=== PATIENT | male | born 1960 | race Caucasian/White ===

== ENCOUNTER 2016-11-07 14:24 | Emergency (ER) | payer BC ==
[2016-11-07 14:41] VITALS: RESP 16
[2016-11-07] MEDS ORDERED: DIPH,PERTUS(ACELL)TETVAC-LF 0.5 ML VIAL IM ONE (14:55)
--- NOTE | 2016-11-07 15:11 | ED ---
General Adult HPI - General Chief complaint: Wound/Laceration Stated complaint: Laceration to Right Arm Time Seen by Provider: 11/07/16 14:37 Source: patient, RN notes reviewed Mode of arrival: ambulatory - History of Present Illness Initial comments: This is a 56-year-old male who presents with a laceration to the dorsal aspect of the left forearm. Patient states he was using a chopping saw and caught the top of his left arm. Patient denies any numbness/weakness or tingling in the left hand and is able to move all fingers. Patient states pain is worse with flexion of the left wrist. Patient is not sure if he is up-to-date on his tetanus shot. Patient denies any recent fever, chills, shortness breath, chest pain, abdominal pain, nausea/vomiting/diarrhea, back pain, hematuria, headache, or visual changes, or any other complaints. - Related Data Home Medications Medication Instructions Recorded Confirmed Diazepam [Valium] 5 mg PO BID PRN 09/17/14 10/20/14 Lisinopril [Lisinopril] 20 mg PO QAM 10/15/14 10/20/14 Previous Rx's Medication Instructions Recorded Cephalexin [Keflex] 500 mg PO Q12HR 5 Days 11/07/16 Allergies Allergy/AdvReac Type Severity Reaction Status Date / Time acetaminophen [From Tylenol] Allergy Swelling Verified 11/07/16 14:38 aspirin Allergy Swelling Verified 11/07/16 14:38 egg Allergy Rash/Hives Verified 11/07/16 14:38 ibuprofen [From Motrin] Allergy Rash/Hives Verified 11/07/16 14:38 Milk Containing Products Allergy Rash/Hives Verified 11/07/16 14:38 Penicillins Allergy Rash/Hives Verified 11/07/16 14:38 Review of Systems ROS Statement: Those systems with pertinent positive or pertinent negative responses have been documented in the HPI. ROS Other: All systems not noted in ROS Statement are negative. Past Medical History Past Medical History: Chest Pain / Angina, Hypertension Additional Past Medical History / Comment(s): HX RENAL CALCULUS History of Any Multi-Drug Resistant Organisms: None Reported Past Surgical History: Orthopedic Surgery, Tonsillectomy Additional Past Surgical History / Comment(s): ARTHROSCOPY LEFT KNEE, NASAL SX Past Anesthesia/Blood Transfusion Reactions: No Reported Reaction Past Psychological History: Anxiety, Depression, PTSD Smoking Status: Never smoker Past Alcohol Use History: Daily Past Drug Use History: None Reported General Exam - General Exam Comments Initial Comments: General: The patient is awake and alert, in no distress, and does not appear acutely ill. Neck: The neck is supple, there is no tenderness or JVD. Cardiovascular: There is a regular rate and rhythm. No murmur, rub or gallop is appreciated. Respiratory: Lungs are clear to auscultation, respirations are non-labored, breath sounds are equal. No wheezes, stridor, rales, or rhonchi. Musculoskeletal: There is tenderness palpation over the ulnar aspect of the distal left forearm. Full range of motion, strength 5/5 and Sensation intact. Radial pulses 2+ bilaterally. Capillary refill is normal at less than 2 seconds. Neurological: A&O x 3. CN II-XII intact, There are no obvious motor or sensory deficits. Coordination appears grossly intact. Speech is normal. Skin: There is an approximately 4.5 cm laceration to the dorsal aspect of the left distal forearm. No active bleeding. Skin is warm and dry and no rashes or lesions are noted. Psychiatric: Normal mood and affect. Course Vital Signs 11/07/16 14:38 Temperature 98.1 F Pulse Rate 90 Respiratory 16 Rate Blood Pressure 137/81 O2 Sat by Pulse 96 Oximetry Procedures - Procedures Initial comment: The skin was anesthetized with 1% lidocaine. The laceration was then cleansed and irrigated with normal saline. The wound was inspected, and there was no evidence of injury to deep structures. No foreign body was noted in the wound. A total of 12 skin sutures were placed utilizing 5-0 ethilon. Laceration is approx 4.5 cm. Medical Decision Making - Medical Decision Making This is a 56-year-old male presents to laceration to the left arm. On physical exam There is an approximately 4.5 cm laceration to the dorsal aspect of the left distal forearm. No active bleeding. There is tenderness to palpation over the ulnar aspect of the left distal forearm. Full range of motion, strength 5/5 and sensation intact. Radial pulses 2+ bilaterally. Capillary refill is normal less than 2 seconds. Patient was given a tetanus shot in the [facility] today. The left forearm was done and reviewed showing: #1 soft tissue defect. #2 is no osseous lesion or radiopaque foreign body. Report by Dr. Mar. The skin was anesthetized with 1% lidocaine. The laceration was then cleansed and irrigated with normal saline. The wound was inspected, and there was no evidence of injury to deep structures. No foreign body was noted in the wound. A total of 12 skin sutures were placed utilizing 5-0 ethilon. Laceration is approx 4.5 cm. I discussed that sutures need to be removed in 8-10 days. I discussed that rinsing and showering are okay but to avoid submerging the wound in water. Discussed [id number] Tylenol and Motrin as needed for any pain. I discussed use of topical Neosporin. I discussed return parameters and signs of infection. Please finish entire course of antibiotics. Discussed that patient should follow up with PCP in one to 2 days or return to the [facility] for any worsening symptoms or for any further concerns. Patient was receptive to this plan and patient will be discharged home. Disposition Clinical Impression: Laceration Disposition: HOME SELF-CARE Condition: Good Instructions: Care For Your Stitches (ED), Stitches Removal (ED) Additional Instructions: Rest, ice, elevate and please have sutures removed in 8-10 days. Please finish entire course of antibiotics. May use topical Neosporin to the area. Please use Tylenol as needed for pain. Please use medication as discussed. Please follow-up with family doctor in the next 2 days of symptoms have not improved. Please return to emergency room if the symptoms increase or worsen or for any other concerns. Prescriptions: Cephalexin [Keflex] 500 mg PO Q12HR 5 Days Time of Disposition: 15:57
--- NOTE | 2016-11-07 15:21 | XR ---
EXAMINATION TYPE: XR forearm LT DATE OF EXAM ORDERED: 11/07/2016 3:12 PM HISTORY: Laceration. COMPARISON: None. FINDINGS: No fracture, dislocation or radiopaque foreign body is seen. There is a soft tissue defect over the dorsum of the distal forearm. IMPRESSION: 1. SOFT TISSUE DEFECT. 2. NO OSSEOUS LESION OR RADIOPAQUE FOREIGN BODY.
[2016-11-07 16:08] VITALS: BP 123/79; PULSE 77; TEMP 97.9
== END 2016-11-07 16:08 | disposition home or self-care (01) ==
LOC: EC 14:24
DX: S51.812A Laceration without foreign body of left forearm, initial encounter (principal); I10 Essential (primary) hypertension; Z23 Encounter for immunization; W45.8XXA Other foreign body or object entering through skin, initial encounter; Z79.899 Other long term (current) drug therapy; Z88.8 Allergy status to other drugs, medicaments and biological substances; Z88.0 Allergy status to penicillin; Z88.6 Allergy status to analgesic agent; Z91.012 Allergy to eggs; Z91.011 Allergy to milk products
CPT/HCPCS: 12002; 90471; 90715; 99283

== ENCOUNTER → 2019-08-24 | Outpatient (CLI) | payer BC ==
--- NOTE | 2019-08-24 15:51 | CT ---
EXAMINATION TYPE: CT chest w con DATE OF EXAM: 08/24/2019 COMPARISON: Chest x-ray dated 06/22/2019 HISTORY: Persistent cough x [address] DLP: 567 mGycm. Automated Exposure Control for Dose Reduction was Utilized. TECHNIQUE: CT scan of the thorax is performed following with IV Contrast, patient injected with 100 mL of Isovue M300. FINDINGS: LUNGS: There is a 5 mm groundglass pulmonary nodule the medial right lower lobe on image 40 of series 4. Similar appearing 8 mm ground glass pulmonary nodule the superior segment of the left lower lobe on image 27. No focal consolidation. There is no pleural effusion or pneumothorax seen. The tracheobronchial tr ee is patent. MEDIASTINUM: There are no greater than 1 cm hilar or mediastinal lymph nodes. No pericardial effusi on is seen. Upper limits of normal size of the aortic root measuring 3.8 cm. OTHER: 5 mm hypoattenuated hepatic lesions in subcapsular location series 3 image 69 in the inferior right hepatic lobe. Overall there is diffuse hypoattenuation of the hepatic parenchyma most commonly related to mild degree hepatic steatosis. Mild multilevel degenerative changes of the thoracic spine. IMPRESSION: 1. Bilateral sub-5 mm groundglass pulmonary nodules (2 in number). Given the groundglass density shor t-term follow-up CT is recommended in 6 months to evaluate for progression or resolution as these cou ld be inflammatory/infectious or early neoplastic. 2. No CT findings to relate to the patient's chronic cough.
== END | disposition home or self-care (01) ==
LOC: RADCTMAIN 15:02
PROVIDERS: ATTEND Internal Medicine Critical Care Medicine
DX: R91.8 Other nonspecific abnormal finding of lung field (principal)
CPT/HCPCS: 71260; Q9967

== ENCOUNTER 2019-08-28 11:11 | Day surgery (SDC) | payer BC ==
[2019-08-27 09:21] VITALS: BMI 27.0
[~2019-08-28 11:11] MED LIST: ALBUTEROL NEB (CONC) 2.5 MG/0.5 ML INHALATION ONE; ATROPINE SULFATE 0.4 MG/ML 1 ML VIAL IM ONE; DEXAMETHASONE SOD PHOSPHATE 10 MG/ML 1 ML VIAL IV ONE; LACTATED RINGERS 1,000 ML IV SCH; LIDOCAINE 1% 20 ML VIAL (10MG/ML) FOR IV START INTRADERMA PRN; LIDOCAINE 2% (PF) 20 MG/ML 5 ML VIAL INHALATION ONE; LIDOCAINE VISCOUS 300 MG/15 ML CUP MUCOUS MEM ONE; ONDANSETRON 4 MG/2 ML VIAL IVP ONE; SODIUM CHLORIDE 0.9% 1,000 ML IV SCH
[2019-08-28 11:38] VITALS: TEMP 97.8
[2019-08-28] MEDS ORDERED: LIDOCAINE 1% INJ 10MG/ML (20 ML MDV) ONE (12:15)
[2019-08-28] MEDS ORDERED: MIDAZOLAM 2 MG/2 ML VIAL ONE (12:15)
[2019-08-28] MEDS ORDERED: KETAMINE 10 MG/ML 20 ML VIAL ONE (12:15)
[2019-08-28] MEDS ORDERED: PROPOFOL 10 MG/ML 20 ML VIAL IV ONE (12:15)
[2019-08-28] MEDS ORDERED: LIDOCAINE 2% INJ 20 MG/ML INTRATRACH ONE (12:29)
[2019-08-28 12:37] VITALS: RESP 16
[2019-08-28 13:07] VITALS: BP 120/65; PULSE 102
--- NOTE | 2019-08-28 14:05 | PCN ---
PROCEDURE NOTE PROCEDURE: Bronchoscopy, airway examination, therapeutic lavage, BAL. PREOPERATIVE DIAGNOSIS: Chronic cough. POSTOPERATIVE DIAGNOSIS: Chronic cough. OPERATORS: Dr. Ramirez and Omar Torres. The anesthesia nurse fabricator special items provided general anesthesia, unconscious sedation. The patient's procedure was done over at the [facility]. There was informed consent and universal timeout. I did speak to the patient before the procedure. Again, the reason for the procedure was chronic cough after preop and postop diagnosis. The procedure was a bronchoscopy, airway examination, therapeutic lavage and BAL. After the patient was adequately sedated and being fully monitored, the bronchoscope was inserted the right nostril. It passed through the right nasopharynx into the oropharynx. The hypopharynx was then identified. The hypopharyngeal structures including anterior commissure, true cords, false cords, arytenoids, piriform sinuses, right and left valleculae and epiglottis all appeared normal. The glottic opening was topicalized with lidocaine. After topicalization, the bronchoscope was pushed through the glottic opening into the trachea. Trachea appeared relatively normal. The tracheal arie was sharp. The right and left mainstem were topicalized. On the left side, the left upper lobe proper and its 2 segments, the lingula and its 2 segments and the left lower lobe and its 4 segments all appeared relatively normal save for diffuse airway erythema and hyperemia. There was acute bronchitis noted throughout. There were thick secretions noted. There was no dominant mass or tumor. There was no bleeding. On the right side, there were similar findings of diffuse airway erythema and hyperemia. There was some mucosal friability. The right upper lobe and its 3 segments, the right middle lobe and its 2 segments, the right lower lobe and its 5 segments, all have similar findings. There was no dominant mass or tumor. There was no bleeding. The secretions on the right side were also suctioned without difficulty with the aid of saline lavage. Airways were topicalized with lidocaine. Next, the bronchoscope was wedged into the right middle lobe. The BAL took place, 30+ mL was recovered. This will be sent to the laboratory for analysis. One final inspection took place before the bronchoscope was withdrawn. Any additional secretions were suctioned. The patient tolerated the procedure well. The bronchoscope was withdrawn. I did speak to the patient's sister after the procedure. He tolerated the procedure well. MMODL / IJN: [id number] /
== END 2019-08-28 13:11 | disposition home or self-care (01) ==
LOC: ORWHC2ENDO 11:11
PROVIDERS: ATTEND Internal Medicine Critical Care Medicine
DX: J20.9 Acute bronchitis, unspecified (principal); J98.09 Other diseases of bronchus, not elsewhere classified; R05 Cough; I10 Essential (primary) hypertension; Z80.1 Family history of malignant neoplasm of trachea, bronchus and lung; Z82.3 Family history of stroke; F32.9 Major depressive disorder, single episode, unspecified; F41.9 Anxiety disorder, unspecified; Z88.0 Allergy status to penicillin; Z79.899 Other long term (current) drug therapy; Z88.6 Allergy status to analgesic agent; Z91.012 Allergy to eggs; Z91.011 Allergy to milk products
CPT/HCPCS: 94640; 88108; 88305; 31624; J2001 ×3; J2250; J0461; J1100; J2405; J2704

== ENCOUNTER → 2020-06-23 | Outpatient (CLI) | payer BC ==
[2020-06-24 01:15] LABS: African American GFR (CKD) 68.3 (60.0-200.0); Albumin 4.5 g/dL (3.80-4.90); Albumin/Globulin Ratio 2.25 (1.60-3.17); Anion Gap 9.2 mmol/L (4.00-12.00); BUN/Creat Ratio 16.92 Ratio (12.00-20.00); Calcium 9.7 mg/dL (8.7-10.3); Carbon Dioxide 23.8 mmol/L (21.6-31.8); Non-African American GFR(CKD) 58.9 (60.0-200.0); Potassium 4.4 mmol/L (3.5-5.5); Total Bilirubin 0.6 mg/dL (0.2-1.2); Total Protein 6.5 g/dL (6.2-8.2)
== END | disposition home or self-care (01) ==
LOC: LABWHC1 15:16
PROVIDERS: ATTEND Internal Medicine Interventional Cardiology
DX: I49.3 Ventricular premature depolarization (principal)
CPT/HCPCS: 36415; 80053; 83735

== ENCOUNTER → 2020-06-28 | Outpatient (CLI) | payer BC ==
--- NOTE | 2020-06-28 17:09 | CONS ---
CONSULTATION SLEEP CONSULTATION FOR SLEEP APNEA: A 59-year-old male patient who has been experiencing daytime palpitations, quite a bit. The patient has undergone a Holter monitor prior to the cardiology and the patient was found to have frequent PVCs. Echocardiogram and stress tests are also to follow. Referred to me for sleep apnea evaluation. He does snore. Sleep apnea runs in his family. 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 During no working days, which is the regular weekdays, the patient goes to bed around 1 a.m. in the morning and gets up at 9 a.m. in the morning. No witnessed apneas. He is a bit fatigued and tired and waking up tired and sleepy during the day. There is no choking or gasping for air. No grinding of the teeth. No sleepwalking. No restlessness in the lower extremities. No recent weight gain or weight loss. No head trauma. No anxiety. No depression. No significant comorbidities. PAST MEDICAL HISTORY: Hypertension. PAST SURGICAL HISTORY: Includes nose surgery for deviated septum and right shoulder surgery x2. DRUG ALLERGIES: PENICILLIN. OUTPATIENT MEDICATIONS: Losartan for hypertension. SOCIAL HISTORY: The patient is a nonsmoker. No history of alcoholism. No history of drug abuse. 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 FAMILY HISTORY: Son and father have obstructive sleep apnea. REVIEW OF SYSTEMS: A 12-point review of system was done, positive findings are mentioned in history of present illness. Otherwise negative. BP is 148/83, pulse 74, respirations 16, temperature 98.1, saturation 97% on room air. Height is 5, 9, weight is 197 and BMI is 28.6. Neck size 16.5 inches. GENERAL APPEARANCE: Calm, comfortable. HEAD: Atraumatic, normocephalic. NECK: Supple. No JVD. No goiter or neck masses, Mallampati class 4 with significant overbite. LUNGS: Clear to auscultation. HEART: Heart sounds are regular rate and rhythm, normal S1, S2. No S3, S4. No murmurs. ABDOMEN: Soft, nontender. No organomegaly. EXTREMITIES: No edema, no cyanosis or clubbing. IMPRESSION: 1. Chronic snoring. 2. Hypersomnia. 3. Chronic fatigue with limited sleepiness with an Mcville score of 6. 4. Hypertension. 5. Palpitations with frequent PVCs. 6. Positive family history for sleep apnea. 7. Overbite with Mallampati class 4. PLAN: 1. Encourage weight loss. 2. Sleep on the side. 3. Avoid caffeinated beverages throughout the day, avoid coffee and other alcoholic beverages. 4. Thyroid function test. 5. Echocardiogram and cardiac workup was in progress. 6. Proceed with a home sleep study. 7. Further recommendations are to follow based on the results of the home sleep study. MMODL / IJN: [id number] /
== END | disposition home or self-care (01) ==
LOC: SLEEP 14:16
PROVIDERS: ATTEND Internal Medicine Critical Care Medicine
DX: G47.10 Hypersomnia, unspecified (principal); I10 Essential (primary) hypertension; I49.3 Ventricular premature depolarization; R53.82 Chronic fatigue, unspecified; M26.29 Other anomalies of dental arch relationship; Z83.6 Family history of other diseases of the respiratory system
CPT/HCPCS: 99211

== ENCOUNTER → 2020-12-29 | Outpatient (CLI) | payer BC ==
[2020-12-29 14:23] LABS: HCT 44.5 % (39.0-53.0); HGB 14.9 gm/dL (13.0-17.5); MCH 31.9 pg (25.0-35.0); MCHC 33.5 g/dL (31.0-37.0); MCV 95.4 fL (80.0-100.0); Mean Platelet Volume 8.5; Platelet Count 216 k/uL (150-450); RBC 4.67 m/uL (4.30-5.90); RDW 13.1 % (11.5-15.5); WBC 6.6 k/uL (3.8-10.6)
[2020-12-29 14:36] LABS: African American GFR (CKD) >90 (>60 ml/min/1.73 sqM); Anion Gap 8 mmol/L; Blood Urea Nitrogen 21 mg/dL (9-20); Carbon Dioxide 25 mmol/L (22-30); Chloride 107 mmol/L (98-107); Non-African American GFR(CKD) 80 (>60 ml/min/1.73 sqM); Potassium 4.4 mmol/L (3.5-5.1); Sodium 140 mmol/L (137-145)
== END | disposition home or self-care (01) ==
LOC: LABWHC1 13:18
PROVIDERS: ATTEND Internal Medicine Clinical Cardiac Electrophysiology
DX: Z01.818 Encounter for other preprocedural examination (principal); I49.3 Ventricular premature depolarization
CPT/HCPCS: 36415; 80051; 82565; 84520; 85027

== ENCOUNTER 2021-01-02 11:20 | Day surgery (SDC) | payer BC ==
[2020-12-29 12:01] VITALS: BMI 29.0
[~2021-01-02 11:20] MED LIST changes: -ALBUTEROL NEB (CONC) 2.5 MG/0.5 ML INHALATION ONE; -ATROPINE SULFATE 0.4 MG/ML 1 ML VIAL IM ONE; -DEXAMETHASONE SOD PHOSPHATE 10 MG/ML 1 ML VIAL IV ONE; -LACTATED RINGERS 1,000 ML IV SCH; -LIDOCAINE 1% 20 ML VIAL (10MG/ML) FOR IV START INTRADERMA PRN; -LIDOCAINE 2% (PF) 20 MG/ML 5 ML VIAL INHALATION ONE; -LIDOCAINE VISCOUS 300 MG/15 ML CUP MUCOUS MEM ONE; -ONDANSETRON 4 MG/2 ML VIAL IVP ONE
[2021-01-02] MEDS ORDERED: SODIUM CHLORIDE 0.9% 1,000 ML IV ONE (11:48)
[2021-01-02 12:05] LABS: Basophils % (A) 1 %; Eosinophils # (A) 0.2 k/uL (0-0.7); Eosinophils % (A) 3 %; HGB 15.3 gm/dL (13.0-17.5); Lymphocytes # (A) 1.4 k/uL (1.0-4.8); Lymphocytes % (A) 26 %; MCH 32.6 pg (25.0-35.0); MCHC 34.7 g/dL (31.0-37.0); MCV 93.8 fL (80.0-100.0); Mean Platelet Volume 7.8; Monocytes # (A) 0.4 k/uL (0-1.0); Monocytes % (A) 7 %; Neutrophils # (A) 3.3 k/uL (1.3-7.7); Neutrophils % (A) 61 %; Platelet Count 202 k/uL (150-450); RBC 4.69 m/uL (4.30-5.90); RDW 12.5 % (11.5-15.5); WBC 5.4 k/uL (3.8-10.6)
[2021-01-02 12:13] LABS: Calcium 9.8 mg/dL (8.4-10.2)
[2021-01-02] MEDS ORDERED: fentaNYL (PF) 50 MCG/ML 2 ML AMP ONE (15:23)
[2021-01-02] MEDS ORDERED: MIDAZOLAM 2 MG/2 ML VIAL ONE (15:23)
[2021-01-02] MEDS ORDERED: PROPOFOL 10 MG/ML 20 ML VIAL IV ONE (15:23)
--- NOTE | 2021-01-02 15:33 | P.HPCAR ---
History of Present Illness This is Dr. Perez dictating an H/P on this patient The patient was interviewed and examined IMPRESSION / ASSESSMENT: Outflow tract PVCs with a left bundle branch block morphology and an initial notching in the downslope of the QRS, symptomatic Increase in frequency with exercise initially followed by suppression at peak exercise Mild mitral valve prolapse with mild regurgitation Normal LV and RV size and function Normal coronary arteries in 2015 PLAN: Mapping and ablation of PVCs EP study for induction of any nonsustained or sustained VT HPI 58-year-old male patient who has recurrent palpitations for the last 5 years with frequent PVCs. They can occur at rest and they occur first thing in the morning when he wakes up. Exercise makes them worse. When he has very frequent PVCs he gets a little dizzy but he has never lost consciousness. Patient denies any fever chills cough expectoration Denies any shortness of breath on exertion denies any skin infections Denies any chest discomfort ROS: No fever chills or rigors, no cough, phlegm or expectoration, no nausea, vomiting or diarrhea, no hematuria, dysuria, no musculoskeletal complaints, no strokes or seizures, no skin lesions. EXAMINATION: Afebrile 97.5F, pulse rate in the 80s, blood pressure 144/90 mmHg pulse ox 99% Breath sounds are clear no rhonchi no crackles Heart sounds are normal and regular this time In the [facility] he was experiencing PVCs on telemetry Abdomen is soft nontender Extremities are warm no edema No JVD REVIEW OF LABS, ECG & MEDICAL DATA White count 5.4, hemoglobin 15.3, platelet count 202,000 BMP normal sodium 138, potassium 4.0 BUN 19 and creatinine 1.09 Physical Exam Vitals: Vital Signs Temp Pulse Resp BP Pulse Ox 01/02/21 11:47 97.5 F L 82 16 144/90 99 Intake and Output 01/02/21 01/02/21 01/02/21 06:59 14:59 22:59 Intake Total 600 Balance 600 Intake: IV 600 Other: Weight 93.4 kg Past Medical History Past Medical History: Chest Pain / Angina, COPD, Eye Disorder, Hypertension, Osteoarthritis (OA), Sleep Apnea/CPAP/BIPAP Additional Past Medical History / Comment(s): HX RENAL CALCULUS, See Dr Perez H&P, chronic bronchitis, gout, tinnitus, vitreous detachment History of Any Multi-Drug Resistant Organisms: None Reported Past Surgical History: Heart Catheterization, Orthopedic Surgery, Tonsillectomy Additional Past Surgical History / Comment(s): ARTHROSCOPY LEFT KNEE, NASAL SX, rt shoulder rotator cuff, rt shoulder arthroscopy Past Anesthesia/Blood Transfusion Reactions: No Reported Reaction Smoking Status: Never smoker - Past Family History Mother Family Medical History: Cancer Physical Examination Vital Signs Temp Pulse Resp BP Pulse Ox 01/02/21 11:47 97.5 F L 82 16 144/90 99 Intake and Output 01/02/21 01/02/21 01/02/21 06:59 14:59 22:59 Intake Total 600 Balance 600 Intake: IV 600 Other: Weight 93.4 kg Results 01/02/21 12:00 01/02/21 12:00 CBC 01/02/21 Range/Units 12:00 WBC 5.4 (3.8-10.6) k/uL RBC 4.69 (4.30-5.90) m/uL Hgb 15.3 (13.0-17.5) gm/dL Hct 44.0 (39.0-53.0) % Plt Count 202 (150-450) k/uL Comprehensive Metabolic Panel 01/02/21 Range/Units 12:00 Sodium 138 (137-145) mmol/L Potassium 4.0 (3.5-5.1) mmol/L Chloride 105 (98-107) mmol/L Carbon Dioxide 27 (22-30) mmol/L BUN 19 (9-20) mg/dL Creatinine 1.09 (0.66-1.25) mg/dL Glucose 105 H (74-99) mg/dL Calcium 9.8 (8.4-10.2) mg/dL Current Medications Generic Name Dose Route Start Last Admin Trade Name Freq PRN Reason Stop Dose Admin Sodium Chloride 1,000 mls @ 20 mls/hr 01/02/21 06:05 Saline 0.9% IV 02/01/21 06:06 .Q24H DAVID Intake and Output 01/02/21 01/02/21 01/02/21 06:59 14:59 22:59 Intake Total 600 Balance 600 Intake: IV 600 Other: Weight 93.4 kg Patient Weight 01/03/21 06:59 Weight 93.4 kg 01/02/21 12:00 01/02/21 12:00
[2021-01-02] MEDS ORDERED: LIDOCAINE 1% INJ 10MG/ML (20 ML MDV) ONE (15:41)
[2021-01-02] MEDS ORDERED: LIDOCAINE 1% INJ 10MG/ML (20 ML MDV) SQ ONE (15:57)
[2021-01-02] MEDS ORDERED: ACETAMINOPHEN TAB 325 MG TAB PO PRN (17:46)
[2021-01-02] MEDS ORDERED: HYDROcodone/APAP 5-325MG 1 EACH TAB PO PRN (17:46)
[2021-01-02] MEDS ORDERED: LACTATED RINGERS 1,000 ML IV ONE (17:46)
[2021-01-02] MEDS ORDERED: ACETAMINOPHEN IV (For NPO) 1,000 MG in EMPTY BAG 1 BAG IVPB ONE (17:46)
--- NOTE | 2021-01-02 18:04 | P.EPPROC ---
- EP Procedure Note Electrophysiology Procedure Note: Diagnosis Palpitations and dizziness Frequent PVCs, left bundle branch block morphology, upright QRS is in the inferior leads, notching on the downslope of the QRS of the PVC in lead V1 Result Noninducible clinical PVC despite a full EP study on and off Isuprel with minimal sedation Very easily inducible atrial fibrillation during catheter placement in the right atrial appendage requiring electrical cardioversion Non-clinical PVC, epicardial focus in the left ventricular epicardium, mapped by conventional techniques in the distal coronary sinus/. Cardiac vein Earliest site -31 ms in the GCV. Not tolerated for ablation at this time since it was nonclinical and will require coronary angiography to confirm that the coronary arteries a safe distance from the earliest site Details Patient was brought to the EP lab in a fasting state. Written informed consent was obtained prior to procedure. IV antibiotics were administered. He stated that 10 minutes before coming into the lab his PVCs stopped With minimal sedation, venous sheaths were placed in the right femoral vein Via these diagnostic catheter placed in the high right atrium, His bundle area, right ventricular outflow, right ventricular apex and coronary sinus and great cardiac vein Sinus cycle length 761 ms, ND interval 149 ms, QRS 155 ms, right bundle branch block morphology, QT interval 401 ms AH interval 76 ms, HV interval 50 ms With catheter placement in the right atrial appendage, atrial fibrillation was very easily induced This remained sustained until electrical cardioversion was performed later on In the interim, while the patient was in atrial fibrillation burst stimulation was performed from the right ventricular outflow tract and the right ventricular apex Extra stimulation opted cripple extrastimuli from both sites in the right ventricle No nonsustained ventricular tachycardia induced No sustained ventricular tachycardia induced Patient did not have his clinical PVCs, not a single clinical PVC noted He had nonclinical PVC that is clearly epicardial in nature with a delta wave- like configuration with an MDI of almost 70% Later this was mapped by conventional techniques into the great cardiac vein. Earliest activation site -31 ms from the onset of the QRS Ablation was not performed since coronary angiography was not performed simultaneously to ensure that this was a safe distance away from the coronary arteries In addition this was a nonclinical PVC Electrical cardioversion was performed successfully with a 200 J biphasic shock to sinus rhythm Thereafter Isuprel was started at 2 mics Later increased to 5 mics There were no spontaneous PVCs noted during Isuprel. Burst stimulation was performed from the right ventricular apex. Extra stimulation was performed on Isuprel No clinical arrhythmias noted Isuprel was stopped and EP study was continued. He did not have his clinical PVCs spontaneously nor were they inducible during EP study Sinus recovery times at 600 504 100 ms were 1158, 1291 and 1158 ms. Corresponding converted to sinus recovery times were minimally prolonged AV node Wenckebach block 280 ms RF at the end of the procedure on sheaths were removed and hemostasis was assured Results discussed with the patient did he was awake through the procedure with minimal sedation He is had an event monitor and he had his symptoms of dizziness and palpitations and PVCs with documented So far we have never documented atrial fibrillation clinically
--- NOTE | 2021-01-02 18:12 | P.PRLE ---
RE: David Weiss Dear Dr. Melvin Patient was admitted with a Diagnosis of Palpitations and dizziness Frequent PVCs, left bundle branch block morphology, upright QRS is in the inferior leads, notching on the downslope of the QRS of the PVC in lead V1 A diagnostic EP study was performed Result Noninducible clinical PVC despite a full EP study on and off Isuprel with minimal sedation. Therefore no mapping could be performed Very easily inducible atrial fibrillation during catheter placement in the right atrial appendage requiring electrical cardioversion Results discussed with the patient did he was awake through the procedure with minimal sedation He is had an event monitor and he had his symptoms of dizziness and palpitations and PVCs with documented So far we have never documented atrial fibrillation clinically I would recommend treating him with a very low dose of flecainide to see if this reduces his PVC burden He will continue to follow with you and Dr. Leach as before
[2021-01-02] MEDS ORDERED: MORPHINE SULFATE 4 MG/ML SYRINGE IVP PRN (19:07)
[2021-01-02] MEDS: FLECAINIDE 50 MG TAB PO SCH (20:58)
[2021-01-02] MEDS ORDERED: ZOLPIDEM 5 MG TAB PO PRN (21:00)
[2021-01-03] MEDS: FLECAINIDE 50 MG TAB PO SCH (07:13)
[2021-01-03 07:22] LABS: Glucose,Whole Blood 93 mg/dL (75-99)
[2021-01-03 07:43] VITALS: BP 153/75; PULSE 72; TEMP 98
[2021-01-03 07:59] VITALS: RESP 18
--- NOTE | 2021-01-03 08:25 | DS ---
DISCHARGE SUMMARY Mr. Weiss has frequent PVCs and he underwent an EP study. However, his clinical PVCs were noninducible. However, he was also noninducible for any nonsustained or sustained VT. This morning he is doing well. We started him on low dose flecainide 50 mg twice daily. His blood pressure is mildly elevated about 150/73 mmHg. He takes losartan 50 mg p.o. daily. Heart sounds S1, S2 are normal. Lungs are clear. No JVD. Minimal tenderness in the groin. Minimal swelling in the groin. IMPRESSION: 1. Frequent PVCs. 2. Noninducible for nonsustained ventricular tachycardia. 3. Noninducible for sustained ventricular tachycardia. 4. Easily inducible atrial fibrillation requiring electrical cardioversion, but we have never clinically seen atrial fibrillation. 5. Right bundle branch block pattern on 12-lead ECG. 6. Hypertension, on losartan. SUGGEST: 1. Maximize losartan for blood pressure management. 2. Low dose flecainide either 25 or 50 mg twice daily to suppress the PVCs. 3. He has 2 PVCs, one is of predominant variety, but it did not show up yesterday. The other was an epicardial PVC. 4. He will follow up with Dr. Leach's nurse practitioner in about a week's time. 5. A followup Holter monitor will be ordered after about 2 weeks. MMODL / IJN: [id number] /
[2021-01-03] MEDS ORDERED: LOSARTAN 50 MG TAB PO SCH (09:00)
== END 2021-01-03 11:00 | disposition home or self-care (01) ==
LOC: CATHEP 11:20 → 6NMEDSUR 15:19 → CATHEP 01-03 11:00
PROVIDERS: ATTEND Internal Medicine Clinical Cardiac Electrophysiology
DX: I49.3 Ventricular premature depolarization (principal); I47.2 Ventricular tachycardia; I48.91 Unspecified atrial fibrillation; I45.2 Bifascicular block; I10 Essential (primary) hypertension; I34.1 Nonrheumatic mitral (valve) prolapse; I34.0 Nonrheumatic mitral (valve) insufficiency; J44.9 Chronic obstructive pulmonary disease, unspecified; M19.90 Unspecified osteoarthritis, unspecified site; G47.30 Sleep apnea, unspecified; M10.9 Gout, unspecified; H93.19 Tinnitus, unspecified ear; Z79.899 Other long term (current) drug therapy; Z88.6 Allergy status to analgesic agent; Z91.012 Allergy to eggs; Z91.011 Allergy to milk products; Z88.0 Allergy status to penicillin; Z86.69 Personal history of other diseases of the nervous system and sense organs; Z99.89 Dependence on other enabling machines and devices; Z87.442 Personal history of urinary calculi; Z87.09 Personal history of other diseases of the respiratory system; Z98.890 Other specified postprocedural states; Z90.89 Acquired absence of other organs; Z80.9 Family history of malignant neoplasm, unspecified
CPT/HCPCS: 92960; 93620; 93623; 80048; 85025; C1894; C1769 ×2; C1730 ×2; J2001

== ENCOUNTER 2021-09-03 10:28 | Emergency (ER) | payer BC ==
[2021-09-03 10:38] VITALS: TEMP 99.7
--- NOTE | 2021-09-03 11:36 | ED ---
General Adult HPI - General Chief complaint: Upper Respiratory Infection Stated complaint: SOB/cough/sore throa Time Seen by Provider: 09/03/21 11:02 Source: patient, RN notes reviewed Mode of arrival: ambulatory Limitations: no limitations - History of Present Illness Initial comments: 60-year-old male presents to the emergency room for a chief complaint of cough. Patient has had a cough for 2 days. Patient states he has had COVID-19 twice already and been vaccinated. Denies shortness of breath except when he gets in a coughing fit. Patient also has a sore throat. Patient has no other complaints at this time including shortness of breath, chest pain, abdominal pain, nausea or vomiting, headache, or visual changes. - Related Data Home Medications Medication Instructions Recorded Confirmed Losartan [Cozaar] 50 mg PO DAILY 08/27/19 09/03/21 Flecainide [Tambocor] 50 mg PO BID 09/03/21 09/03/21 Previous Rx's Medication Instructions Recorded Benzonatate [Tessalon Perles] 200 mg PO Q8H PRN #15 capsule 09/03/21 Promethaz-Cod 6.25-10 mg/5 ml 5 ml PO Q6HR PRN 3 Days #60 ml 09/03/21 [Phenergan with Codeine] predniSONE 50 mg PO DAILY #5 tablet 09/03/21 Allergies Allergy/AdvReac Type Severity Reaction Status Date / Time acetaminophen [From Tylenol] Allergy Rash/Hives Verified 09/03/21 12:04 egg Allergy Rash/Hives Verified 09/03/21 12:04 ibuprofen [From Motrin] Allergy Rash/Hives Verified 09/03/21 12:04 Milk Containing Products Allergy Rash/Hives Verified 09/03/21 12:04 naproxen Allergy Rash/Hives Verified 09/03/21 12:04 Penicillins Allergy Rash/Hives Verified 09/03/21 12:04 Review of Systems ROS Statement: Those systems with pertinent positive or pertinent negative responses have been documented in the HPI. ROS Other: All systems not noted in ROS Statement are negative. Past Medical History Past Medical History: Chest Pain / Angina, COPD, Eye Disorder, Hypertension, Osteoarthritis (OA), Sleep Apnea/CPAP/BIPAP Additional Past Medical History / Comment(s): HX RENAL CALCULUS, See Dr Perez H&P, chronic bronchitis, gout, tinnitus, vitreous detachment, irregular heart beat per patient History of Any Multi-Drug Resistant Organisms: None Reported Past Surgical History: Heart Catheterization, Orthopedic Surgery, Tonsillectomy Additional Past Surgical History / Comment(s): ARTHROSCOPY LEFT KNEE, NASAL SX, rt shoulder rotator cuff, rt shoulder arthroscopy Past Anesthesia/Blood Transfusion Reactions: No Reported Reaction Past Psychological History: Anxiety, Depression, PTSD Smoking Status: Never smoker Past Alcohol Use History: Daily Past Drug Use History: None Reported - Past Family History Mother Family Medical History: Cancer General Exam Limitations: no limitations General appearance: alert, in no apparent distress Head exam: Present: atraumatic Eye exam: Present: normal appearance, PERRL, EOMI. Absent: scleral icterus, conjunctival injection ENT exam: Present: normal exam, normal oropharynx (Erythematous, postnasal drip noted. Uvula midline, no tonsillar treated bilaterally), mucous membranes moist, TM's normal bilaterally, normal external ear exam Neck exam: Present: normal inspection, full ROM. Absent: tenderness Respiratory exam: Present: normal lung sounds bilaterally. Absent: respiratory distress, wheezes Cardiovascular Exam: Present: regular rate, normal rhythm, normal heart sounds GI/Abdominal exam: Present: soft, normal bowel sounds. Absent: distended, tenderness Neurological exam: Present: alert Course Vital Signs 09/03/21 09/03/21 10:34 11:56 Temperature 99.7 F H Pulse Rate 116 H Respiratory 18 22 Rate Blood Pressure 144/88 O2 Sat by Pulse 99 Oximetry Medical Decision Making - Medical Decision Making Vitals are stable. Low grade fever noted. Patient is ALLERGIC to Motrin and Tylenol but can take aspirin so this was ordered. COVID-19 and influenza negative. Chest x-ray shows no acute pulmonary infiltrate. Pt states usually needs steroids when he gets like this as he has a chronic bronchitis history. We will treat patient with steroids and cough medicine. We will send a strep as well. I will call him with results. He will return here for any worsening symptoms. - Lab Data Lab Results 09/03/21 09/03/21 Range/Units 11:42 11:42 Coronavirus (PCR) Not Detected (Not Detectd) Influenza Type A RNA Not Detected (Not Detectd) Influenza Type B (PCR) Not Detected (Not Detectd) Disposition Clinical Impression: Cough, Pharyngitis Disposition: HOME SELF-CARE Condition: Good Instructions (If sedation given, give patient instructions): Pharyngitis (ED), Acute Cough (ED) Additional Instructions: Please take medications as directed. Continue to use your albuterol inhaler at home. Follow-up with your doctor. If you have worsening symptoms return to the emergency room. Prescriptions: Promethaz-Cod 6.25-10 mg/5 ml [Phenergan with Codeine] 5 ml PO Q6HR PRN 3 Days #60 ml PRN Reason: Cough predniSONE 50 mg PO DAILY #5 tablet Benzonatate [Tessalon Perles] 200 mg PO Q8H PRN #15 capsule PRN Reason: Cough Is patient prescribed a controlled substance at d/c from ED?: No Referrals: Jone Melvin MD [Primary Care Provider] - 1-2 days Time of Disposition: 12:39
--- NOTE | 2021-09-03 11:44 | XR ---
EXAMINATION TYPE: XR chest 2V DATE OF EXAM: 09/03/2021 COMPARISON: 06/19/2019 HISTORY: 60 years Male. STUDY INDICATION GIVEN: cough . TECHNIQUE: Frontal and lateral chest radiographs. IMPRESSION: No focal airspace disease, pneumothorax or pleural effusion. Mild lung hyperinflation and scattered lucencies in the upper lobes suggestive of chronic lung change s COPD/emphysema no significant change since prior. Slightly increased focal eventration of the mid right hemidiaphragm. The cardiomediastinal silhouette is normal in appearance. No acute osseous abnormalities seen.
[2021-09-03] MEDS ORDERED: ASPIRIN 325 MG TAB PO STA (12:13)
[2021-09-03 13:12] VITALS: BP 138/84; PULSE 100; RESP 20
== END 2021-09-03 13:09 | disposition home or self-care (01) ==
LOC: EC 10:28
DX: J02.9 Acute pharyngitis, unspecified (principal); Z20.822 Contact with and (suspected) exposure to COVID-19; I10 Essential (primary) hypertension; J44.9 Chronic obstructive pulmonary disease, unspecified; M19.90 Unspecified osteoarthritis, unspecified site; Z79.899 Other long term (current) drug therapy; Z88.0 Allergy status to penicillin; Z88.8 Allergy status to other drugs, medicaments and biological substances
CPT/HCPCS: 71046; 87081; 87430; 87502; 87635; 99284

== ENCOUNTER → 2025-04-13 | Outpatient (CLI) | payer BC ==
[2025-04-13 15:31] LABS: BUN/Creat Ratio 19.73 Ratio (12.00-20.00); Blood Urea Nitrogen 21.7 mg/dL (9.0-27.0); Chloride 108 mmol/L (96-109); Glucose 92 mg/dL (70-110); Potassium 4.3 mmol/L (3.5-5.5); Sodium 144 mmol/L (135-145)
[2025-04-13 15:32] LABS: ALT 16 U/L (10-49); AST 17 U/L (14-35); Albumin 4.4 g/dL (3.8-4.9); Albumin/Globulin Ratio 1.83 Ratio (1.60-3.17); Alkaline Phosphatase 63 U/L (41-126); Anion Gap 13.30 mmol/L (4.00-12.00); Calcium 9.4 mg/dL (8.7-10.3); Carbon Dioxide 22.7 mmol/L (21.6-31.8); Globulin 2.4 g/dL (1.6-3.3); PSA Annual Screen 1.340 ng/mL (0.000-4.000); Total Protein 6.8 g/dL (6.2-8.2)
[2025-04-13 16:12] LABS: Basophils # (A) 0.03 X 10*3/uL (0.00-0.10); Basophils % (A) 0.6 %; Eosinophils # (A) 0.29 X 10*3/uL (0.04-0.35); Eosinophils % (A) 5.4 %; HCT 43.8 % (39.6-50.0); HGB 14.3 g/dL (13.0-17.0); Immature Grans, Automated 0.60 %; Lymphocytes # (A) 1.78 X 10*3/uL (0.90-5.00); Lymphocytes % (A) 32.8 %; MCH 31.2 pg (27.0-32.0); MCHC 32.6 g/dL (32.0-37.0); MCV 95.4 FL (80.0-97.0); Monocytes # (A) 0.39 X 10*3/uL (0.20-1.00); Monocytes % (A) 7.2 %; NRBC Per 100 WBC 0 X 10*3/uL (0.00-0.01); Neutrophils # (A) 2.90 X 10*3/uL (1.80-7.70); Neutrophils % (A) 53.4 %; Platelet Count 131 X 10*3/uL (140-440); RBC 4.59 X 10*6/uL (4.40-5.60); RBC Morphology Normal (Normal); RDW 12.8 % (11.5-14.5); WBC 5.42 X 10*3/uL (4.50-10.00)
== END | disposition home or self-care (01) ==
LOC: LABWHC1 11:24
PROVIDERS: ATTEND Family Medicine
DX: Z00.00 Encounter for general adult medical examination without abnormal findings (principal); Z12.5 Encounter for screening for malignant neoplasm of prostate
CPT/HCPCS: 80053; 84443; 85025; 36415; G0103

== ENCOUNTER → 2025-04-22 | Outpatient (CLI) | payer MEDICARE ==
--- NOTE | 2025-04-22 16:30 | XR ---
EXAMINATION TYPE: XR chest 2V DATE OF EXAM: 04/22/2025 3:03 PM COMPARISON: 09/03/2021 CLINICAL INDICATION: Male, 64 years old with history of R05.9 COUGH, , TECHNIQUE: Frontal and lateral views FINDINGS: The cardiomediastinal silhouette, aorta, and pulmonary vasculature are within normal limits. Mild hyp erinflation. And pleural spaces are clear. IMPRESSION: COPD. No acute cardiopulmonary process seen. [facility], , 04/22/2025 4:27 PM
== END | disposition home or self-care (01) ==
LOC: RADXRMAIN 14:44
PROVIDERS: ATTEND Family Medicine
DX: J44.9 Chronic obstructive pulmonary disease, unspecified (principal)
CPT/HCPCS: 71046